=== PATIENT | male | born 1995 | race Caucasian/White ===

== ENCOUNTER 2018-06-30 04:28 | Emergency (ER) | payer OTHER ==
[~2018-06-30] VITALS: Ht 172.7 cm; Wt 86.6 kg
[2018-06-30 04:35] VITALS: Ht 172.7 cm; Wt 86.6 kg
[2018-06-30 09:24] VITALS: BP 118/73
== END 2018-06-30 09:24 | disposition home or self-care (01) ==
LOC: ED 04:28
DX: S09.8XXA Other specified injuries of head, initial encounter (principal); Z98.890 Other specified postprocedural states; W22.8XXA Striking against or struck by other objects, initial encounter; Y93.89 Activity, other specified; Y92.89 Other specified places as the place of occurrence of the external cause; Y99.8 Other external cause status